=== PATIENT | male | born 1960 | race Caucasian/White ===

== ENCOUNTER 2018-08-17 18:53 | Emergency (ER) | payer SELFPAY ==
[2018-08-17] MEDS ORDERED: Aspirin 81 MG Tab.Chew PO ONE (19:19)
[2018-08-17] MEDS ORDERED: Meclizine 25 MG Tab PO ONE (19:19)
[2018-08-17] MEDS ORDERED: Sodium Chloride 0.9% 1,000 ML IV ONE (19:19)
[2018-08-17] MEDS ORDERED: Sodium Chloride 0.9% 10 ML Syringe FLUSH PRN (19:19)
[2018-08-17] MEDS ORDERED: Sodium Chloride 0.9% 2.5 ML Syringe FLUSH PRN (19:19)
[2018-08-17] MEDS ORDERED: Ondansetron 4 MG/2 ML SDV IVPUSH ONE (19:19)
--- NOTE | 2018-08-17 19:24 | EDM.PDOC ---
ED HPI GENERAL MEDICAL PROBLEM - General Chief Complaint: Chest Pain Stated Complaint: SEVERE CHEST PAIN Time Seen by Provider: 08/17/18 19:06 - History of Present Illness INITIAL COMMENTS - FREE TEXT/NARRATIVE: HISTORY AND PHYSICAL: History of present illness: The patient is a 57-year-old male with no stated cardiac or pulmonary problems and takes no medications, but does say he has an history of IBS but takes no medications, who presents with a three-day history of brief episodes of dizziness without syncope and chest with sternal pressure discomfort. The patient says that his symptoms started 3 days ago while he was in bed sleeping and he woke up and felt like the room was spinning. It only lasted for 5 minutes then went away and he went back to sleep. He felt fine throughout the next day and did have another episode where he felt dizzy spinning and lightheaded with generalized weakness and had lower midsternal chest pressure which felt tight and the dizziness lasted for less than a minute and the chest discomfort lasted for 5-10 minutes and then went away. He says that since that time he has felt really weak and a generalized way without any focal weakness a bit unsteady walking due to the weakness and has had some intermittent dizziness but no headache or neck pain no shortness of breath no vomiting but he has had some nausea. He said that he felt more nauseated this evening and felt very bloated in his upper abdomen which is why he came in. He has not had a fever chills or upper respiratory symptoms shortness of breath or any extremity complaints. He has no history of ear pain or throat pain or sinus issues. Patient not taking [id number]-[id number] meds for this. He says that over the last one year he has lost a significant amount of weight due to dieting and changing his diet. He has no family history of cardiac disease but does not know very much about his father. The patient is a smoker and has cut back significantly only smoking 5 cigarettes a day and drink more frequently but not binge drinking and now drinks only very rarely. His symptoms are somewhat vague when I talked to him and he has difficulty pinning down what is bothering him. He has never had an EKG or cardiac workup and has no leg pain or swelling. The patient said that the initial episode of the dizziness started when he was laying flat but he says that since that time he feels like it is better when he lays down and worse when he stands up. He has not had any falls Review of systems: As per history of present illness and below otherwise all systems reviewed and negative. Past medical history: As per history of present illness and as reviewed below otherwise noncontributory. Surgical history: As per history of present illness and as reviewed below otherwise noncontributory. Social history: No reported history of drug or alcohol abuse. Family history: As per history of present illness and as reviewed below otherwise noncontributory. Physical exam: General: Well-developed well-nourished man who is nontoxic and vital signs were noted by me. Patient ambulated into the ED without assistance HEENT: Atraumatic, normocephalic, pupils reactive, negative for conjunctival pallor or scleral icterus, mucous membranes moist, throat clear, neck supple, nontender, trachea midline. EOMs are intact and I cannot elicit any nystatin as , TMs are normal bilaterally and there is no mastoid tenderness redness or erythema no cervical adenopathy or nuchal rigidity and no sinus tenderness. When I have the patient move his head [id number] quickly he says that there is a slight sensation of his "brain moving" but it is not the same as what he had at home. Lungs: Clear to auscultation, breath sounds equal bilaterally, chest nontender. Heart: S1S2, regular, negative for clicks, rubs, or JVD. No overt murmurs are appreciated Abdomen: Soft, nondistended, nontender. Negative for masses or hepatosplenomegaly. Negative for costovertebral tenderness. Pelvis: Stable nontender. Genitourinary: Deferred. Rectal: Deferred. Extremities: Atraumatic, negative for cords or calf pain. Neurovascular unremarkable. Full range of motion without defects or deficits Neuro: Awake, alert, oriented. Cranial nerves II through XII unremarkable. Cerebellum unremarkable. Motor and sensory unremarkable throughout. Exam nonfocal. Diagnostics: EKG chest x-ray CBC CMP lipase H. pylori TSH troponin chest x-ray Therapeutics: IV O2 monitor IV fluids aspirin meclizine Zofran Protonix Patient says he feels completely resolved and in light of his EKG which shows a right bundle branch block and no prior history of EKG CT was offered admission which he declines. He is aware that he needs to follow-up and we will place his name on the x-ray to follow-up list and I will give him a prescription for the H. pylori. I've also given Antivert to try at home. He is aware of reasons to return to the ED and my concerns. Impression: Episodic chest pain, H pylori infection; episodic dizziness rule out vertigo Definitive disposition and diagnosis as appropriate pending reevaluation and review of above. chest Pain Score (Numeric/FACES): 1 - Related Data Allergies Allergy/AdvReac Type Severity Reaction Status Date / Time No Known Allergies Allergy Verified 02/26/15 17:17 Home Meds: Home Meds Cholestyramine/Aspartame [Cholestyramine Light] 1 packet PO ASDIRECTED 02/26/15 [History] Hydrocortisone [Proctosol-HC] 1 applic RECTAL ASDIRECTED 02/26/15 [History] Past Medical History HEENT History: Reports: Other (See Below) Other HEENT History: [place], has 'ringing to ears' Cardiovascular History: Reports: None Gastrointestinal History: Reports: Chronic Diarrhea, Hemorrhoids Other Gastrointestinal History: hx of reflux and/or heartburn, none since weight loss Musculoskeletal History: Reports: Fracture Other Musculoskeletal History: Open knee surgery Left Knee '72 Neurological History: Reports: None Endocrine/Metabolic History: Reports: Obesity/BMI 30+ Hematologic History: Reports: None Immunologic History: Reports: None Oncologic (Cancer) History: Reports: None Dermatologic History: Reports: Other (See Below) Other Dermatologic History: Nail fungus - Past Surgical History HEENT Surgical History: Reports: Tonsillectomy ED ROS GENERAL - Review of Systems Review Of Systems: ROS reveals no pertinent complaints other than HPI. ED EXAM, GENERAL - Physical Exam Exam: See Below (see Dictation) Course - Vital Signs Last Recorded V/S: Last Vital Signs Temp 37.3 C 08/17/18 19:01 Pulse 73 08/17/18 20:58 Resp 22 H 08/17/18 19:01 BP 116/71 08/17/18 20:58 Pulse Ox 97 08/17/18 20:25 - Orders/Labs/Meds Orders: Active Orders 24 hr Category Date Time Status Cardiac Monitoring [RC] . DIRECTED Care 08/17/18 19:17 Active EKG 12 Lead [EKG Documentation Completion] [RC] STAT Care 08/17/18 19:17 Active EKG Documentation Completion [RC] STAT Care 08/17/18 19:17 Active Oxygen Therapy, ED [RC] ASDIRECTED Care 08/17/18 19:17 Active Pulse Oximetry [RC] ASDIRECTED Care 08/17/18 19:17 Active Sodium Chloride 0.9% [Saline Flush] Med 08/17/18 19:19 Active 10 ml FLUSH ASDIRECTED PRN Sodium Chloride 0.9% [Saline Flush] Med 08/17/18 19:19 Active 2.5 ml FLUSH ASDIRECTED PRN Saline Lock Insert [OM.PC] Stat Oth 08/17/18 19:17 Ordered Medication Orders Sodium Chloride (Saline Flush) 10 ml FLUSH ASDIRECTED PRN PRN Reason: Keep Vein Open Last Admin: 08/17/18 19:34 Dose: 10 ml Sodium Chloride (Saline Flush) 2.5 ml FLUSH ASDIRECTED PRN PRN Reason: Keep Vein Open Last Admin: 08/17/18 19:34 Dose: 2.5 ml Labs: Laboratory Tests 08/17/18 08/17/18 08/17/18 Range/Units 19:30 19:30 19:30 WBC 8.93 (4.0-11.0) K/uL RBC 5.19 (4.50-5.90) M/uL Hgb 16.3 (13.0-17.0) g/dL Hct 47.6 (38.0-50.0) % MCV 91.7 (80.0-98.0) fL MCH 31.4 (27.0-32.0) pg MCHC 34.2 (31.0-37.0) g/dL RDW Std Deviation 42.0 (28.0-62.0) fl RDW Coeff of Mejia 13 (11.0-15.0) % Plt Count 173 (150-400) K/uL MPV 11.10 (7.40-12.00) fL Neut % (Auto) 54.6 (48.0-80.0) % Lymph % (Auto) 36.2 (16.0-40.0) % Lyman % (Auto) 4.9 (0.0-15.0) % Eos % (Auto) 3.7 (0.0-7.0) % Baso % (Auto) 0.6 (0.0-1.5) % Neut # (Auto) 4.9 (1.4-5.7) K/uL Lymph # (Auto) 3.2 H (0.6-2.4) K/uL Lyman # (Auto) 0.4 (0.0-0.8) K/uL Eos # (Auto) 0.3 (0.0-0.7) K/uL Baso # (Auto) 0.1 (0.0-0.1) K/uL Nucleated RBC % 0.0 /100WBC Nucleated RBCs # 0 K/uL Sodium 139 (136-148) mmol/L Potassium 3.5 (3.5-5.1) mmol/L Chloride 104 (98-107) mmol/L Carbon Dioxide 26.8 (21.0-32.0) mmol/L BUN 9 (7.0-18.0) mg/dL Creatinine 1.1 (0.8-1.3) mg/dL Est Cr Clr Drug Dosing 75.88 mL/min Estimated GFR (MDRD) > 60.0 ml/min Glucose 159 H (74-106) mg/dL Calcium 8.5 (8.5-10.1) mg/dL Total Bilirubin 0.3 (0.2-1.0) mg/dL AST 12 L (15-37) IU/L ALT 16 (14-63) IU/L Alkaline Phosphatase 74 (46-116) U/L Troponin I < 0.050 (0.000-0.056) ng/mL Total Protein 6.9 (6.4-8.2) g/dL Albumin 3.5 (3.4-5.0) g/dL Globulin 3.4 (2.6-4.0) g/dL Albumin/Globulin Ratio 1.0 (0.9-1.6) Lipase 365 (73-393) U/L TSH 3rd Generation 1.18 (0.36-3.74) uIU/mL Urine Color Urine Appearance Urine pH (5.0-8.0) Ur Specific [place] (1.001-1.035) Urine Protein (NEGATIVE) mg/dL Urine Glucose (UA) (NEGATIVE) mg/dL Urine Ketones (NEGATIVE) mg/dL Urine Occult Blood (NEGATIVE) Urine Nitrite (NEGATIVE) Urine Bilirubin (NEGATIVE) Urine Urobilinogen (<2.0) EU/dL Ur Leukocyte Esterase (NEGATIVE) H. pylori IgG Antibody POSITIVE H (NEG) 08/17/18 Range/Units 19:42 WBC (4.0-11.0) K/uL RBC (4.50-5.90) M/uL Hgb (13.0-17.0) g/dL Hct (38.0-50.0) % MCV (80.0-98.0) fL MCH (27.0-32.0) pg MCHC (31.0-37.0) g/dL RDW Std Deviation (28.0-62.0) fl RDW Coeff of Mejia (11.0-15.0) % Plt Count (150-400) K/uL MPV (7.40-12.00) fL Neut % (Auto) (48.0-80.0) % Lymph % (Auto) (16.0-40.0) % Lyman % (Auto) (0.0-15.0) % Eos % (Auto) (0.0-7.0) % Baso % (Auto) (0.0-1.5) % Neut # (Auto) (1.4-5.7) K/uL Lymph # (Auto) (0.6-2.4) K/uL Lyman # (Auto) (0.0-0.8) K/uL Eos # (Auto) (0.0-0.7) K/uL Baso # (Auto) (0.0-0.1) K/uL Nucleated RBC % /100WBC Nucleated RBCs # K/uL Sodium (136-148) mmol/L Potassium (3.5-5.1) mmol/L Chloride (98-107) mmol/L Carbon Dioxide (21.0-32.0) mmol/L BUN (7.0-18.0) mg/dL Creatinine (0.8-1.3) mg/dL Est Cr Clr Drug Dosing mL/min Estimated GFR (MDRD) ml/min Glucose (74-106) mg/dL Calcium (8.5-10.1) mg/dL Total Bilirubin (0.2-1.0) mg/dL AST (15-37) IU/L ALT (14-63) IU/L Alkaline Phosphatase (46-116) U/L Troponin I (0.000-0.056) ng/mL Total Protein (6.4-8.2) g/dL Albumin (3.4-5.0) g/dL Globulin (2.6-4.0) g/dL Albumin/Globulin Ratio (0.9-1.6) Lipase (73-393) U/L TSH 3rd Generation (0.36-3.74) uIU/mL Urine Color YELLOW Urine Appearance CLEAR Urine pH 5.5 (5.0-8.0) Ur Specific [place] <= 1.005 (1.001-1.035) Urine Protein NEGATIVE (NEGATIVE) mg/dL Urine Glucose (UA) NEGATIVE (NEGATIVE) mg/dL Urine Ketones NEGATIVE (NEGATIVE) mg/dL Urine Occult Blood NEGATIVE (NEGATIVE) Urine Nitrite NEGATIVE (NEGATIVE) Urine Bilirubin NEGATIVE (NEGATIVE) Urine Urobilinogen 0.2 (<2.0) EU/dL Ur Leukocyte Esterase NEGATIVE (NEGATIVE) H. pylori IgG Antibody (NEG) Meds: Medications Generic Name Dose Route Start Last Admin Trade Name Freq PRN Reason Stop Dose Admin Sodium Chloride 10 ml 08/17/18 19:19 08/17/18 19:34 Saline Flush FLUSH 10 ml ASDIRECTED PRN Administration Keep Vein Open Sodium Chloride 2.5 ml 08/17/18 19:19 08/17/18 19:34 Saline Flush FLUSH 2.5 ml ASDIRECTED PRN Administration Keep Vein Open Discontinued Medications Generic Name Dose Route Start Last Admin Trade Name Freq PRN Reason Stop Dose Admin Aspirin 324 mg 08/17/18 19:19 08/17/18 19:34 Aspirin PO 08/17/18 19:20 324 mg ONETIME ONE Administration Sodium Chloride 1,000 mls @ 999 mls/hr 08/17/18 19:19 08/17/18 19:33 Normal Saline IV 08/17/18 20:19 999 mls/hr STAT ONE Administration Meclizine HCl 25 mg 08/17/18 19:19 08/17/18 19:34 Antivert PO 08/17/18 19:20 25 mg ONETIME ONE Administration Ondansetron HCl 4 mg 08/17/18 19:19 08/17/18 19:33 Zofran IVPUSH 08/17/18 19:20 4 mg ONETIME ONE Administration Pantoprazole Sodium 80 mg 08/17/18 20:19 08/17/18 20:50 Protonix Iv IVPUSH 08/17/18 20:20 80 mg .BOLUS ONE Administration Sodium Chloride 20 ml 08/17/18 20:40 08/17/18 20:50 Normal Saline FLUSH 08/17/18 20:41 20 ml ONETIME ONE Administration Departure - Departure Time of Disposition: 21:19 Disposition: Home, Self-Care 01 Condition: Good Clinical Impression: Dizziness, Helicobacter pylori infection, Atypical chest pain - Discharge Information Referrals: PCP,None [Primary Care Provider] - Forms: ED Department Discharge Additional Instructions: The following information is given to patients seen in the emergency department who are being discharged to home. This information is to outline your options for follow-up care. We provide all patients seen in our emergency department with a follow-up referral. The need for follow-up, as well as the timing and circumstances, are variable depending upon the specifics of your emergency department visit. If you don't have a primary care physician on staff, we will provide you with a referral. We always advise you to contact your personal physician following an emergency department visit to inform them of the circumstance of the visit and for follow-up with them and/or the need for any referrals to a consulting specialist. The emergency department will also refer you to a specialist when appropriate. This referral assures that you have the opportunity for followup care with a specialist. All of these measure are taken in an effort to provide you with optimal care, which includes your followup. Under all circumstances we always encourage you to contact your private physician who remains a resource for coordinating your care. When calling for followup care, please make the office aware that this follow-up is from your recent emergency room visit. If for any reason you are refused follow-up, please contact the [facility] emergency department at and ask to speak to the emergency department charge nurse. [facility] Primary care- Internal Medicine and Family [address] [address] Please fill your prescription and take all medications as prescribed. Use the meclizine for dizziness. Please return to ER as needed and as we discussed for evolution of your symptoms or as you have any concerns. Please connect with our clinic on [address] morning and schedule a follow-up appointment for more care and evaluation. - My Orders Last 24 Hours: My Active Orders 08/17/18 19:17 Cardiac Monitoring [RC] . DIRECTED EKG 12 Lead [EKG Documentation Completion] [RC] STAT EKG Documentation Completion [RC] STAT Oxygen Therapy, ED [RC] ASDIRECTED Pulse Oximetry [RC] ASDIRECTED Saline Lock Insert [OM.PC] Stat 08/17/18 19:19 Sodium Chloride 0.9% [Saline Flush] 10 ml FLUSH ASDIRECTED PRN Sodium Chloride 0.9% [Saline Flush] 2.5 ml FLUSH ASDIRECTED PRN - Assessment/Plan Last 24 Hours: My Active Orders 08/17/18 19:17 Cardiac Monitoring [RC] . DIRECTED EKG 12 Lead [EKG Documentation Completion] [RC] STAT EKG Documentation Completion [RC] STAT Oxygen Therapy, ED [RC] ASDIRECTED Pulse Oximetry [RC] ASDIRECTED Saline Lock Insert [OM.PC] Stat 08/17/18 19:19 Sodium Chloride 0.9% [Saline Flush] 10 ml FLUSH ASDIRECTED PRN Sodium Chloride 0.9% [Saline Flush] 2.5 ml FLUSH ASDIRECTED PRN
[2018-08-17 20:07] LABS: CHLORIDE,CL 104 mmol/L (98-107); SODIUM,NA 139 mmol/L (136-148)
--- NOTE | 2018-08-17 20:15 | CR ---
INDICATION: Pain and shortness of breath. TECHNIQUE: Chest 1 view. COMPARISON: None FINDINGS: Cardiovascular and mediastinum: Heart size and vasculature are normal in caliber and appearance. Mediastinum is within normal limits. Lungs and pleural space: Lungs are clear. No pleural effusion. No pneumothorax. Bones and soft tissues: No acute findings. IMPRESSION: No acute pulmonary process. Dictated by Phillip Rao MD @ 08/17/2018 8:13:12 PM Dictated by: Phillip Rao MD @ 08/17/2018 20:13:18 (Electronically Signed)
[2018-08-17] MEDS ORDERED: Pantoprazole 40 MG Vial IVPUSH ONE (20:19)
[2018-08-17] MEDS ORDERED: Sodium Chloride 0.9% 20 ML SDV FLUSH ONE (20:40)
--- NOTE | 2018-08-17 20:45 | CT ---
INDICATION: Dizziness. Weakness. TECHNIQUE: CT head without IV contrast. FINDINGS: No intracranial hemorrhage, edema, or mass-effect. Mild prominence of CSF space posterior to the cerebellum likely related to mild prominence of the cisterna magnum. Mild cerebral atrophy. The left lateral ventricle is slightly more prominent than the right likely a normal variant finding. Remainder negative. IMPRESSION: No acute intracranial disease. Chronic intracranial findings as detailed above. Please note that all CT scans at this facility use dose modulation, iterative reconstruction, and/or weight-based dosing when appropriate to reduce radiation dose to as low as reasonably achievable. Dictated by Linden August MD @ Aug 17 2018 8:41PM Signed by Dr. Linden August @ Aug 17 2018 8:45PM
[2018-08-18 02:09] VITALS: BP 117/71
== END 2018-08-17 21:38 | disposition home or self-care (01) ==
LOC: MW.ED 18:53
DX: A04.8 Other specified bacterial intestinal infections (principal); R07.89 Other chest pain; R42 Dizziness and giddiness; E66.9 Obesity, unspecified; F17.210 Nicotine dependence, cigarettes, uncomplicated; Z98.890 Other specified postprocedural states
CPT/HCPCS: 70450; 71045; 80053; 81003; 83690; 84443; 84484; 85025; 86677; 93005; 96361; 96374; 96375; 99285; A9270; C9113; J2405; J7040

== ENCOUNTER 2020-07-16 16:15 | Emergency (ER) | payer SELFPAY ==
[2020-07-16 16:34] VITALS: BP 123/80; PULSE 101
--- NOTE | 2020-07-16 16:39 | EDM.PDOC ---
ED HPI GENERAL MEDICAL PROBLEM - General Chief Complaint: General Stated Complaint: PENDING NOTIFICATION? Time Seen by Provider: 07/16/20 16:25 Source of Information: Reports: Patient History Limitations: Reports: No Limitations - History of Present Illness INITIAL COMMENTS - FREE TEXT/NARRATIVE: Patient is a 59-year-old male who presents today for chest pain and tingling of extremities. Patient states that he drinks alcohol last night more than what he normally drinks and woke up today is slightly hung over. Patient states he had a new batch of marijuana and not smoking he has some tingling throughout his body was made him nervous. Patient also has some left-sided chest pain which seems more of a did not radiate was not made better or worse. Patient has no chest pain. Patient denies any nausea vomiting fever chills or other medical complaints. back of the neck Pain Score (Numeric/FACES): 6 chest Pain Score (Numeric/FACES): 1 - Related Data Allergies Allergy/AdvReac Type Severity Reaction Status Date / Time No Known Allergies Allergy Verified 07/16/20 16:34 Home Meds: Home Meds . [No Known Home Meds] 07/16/20 [History] Past Medical History HEENT History: Reports: Other (See Below) Other HEENT History: Musc[place], has 'ringing to ears' Cardiovascular History: Reports: None Gastrointestinal History: Reports: Chronic Diarrhea, Hemorrhoids Other Gastrointestinal History: hx of reflux and/or heartburn, none since weight loss Musculoskeletal History: Reports: Fracture Other Musculoskeletal History: Open knee surgery Left Knee '72 Neurological History: Reports: None Endocrine/Metabolic History: Reports: Obesity/BMI 30+ Hematologic History: Reports: None Immunologic History: Reports: None Oncologic (Cancer) History: Reports: None Dermatologic History: Reports: Other (See Below) Other Dermatologic History: Nail fungus - Infectious Disease History Infectious Disease History: Reports: Chicken Pox - Past Surgical History HEENT Surgical History: Reports: Tonsillectomy Social & Family History - Caffeine Use Caffeine Use: Reports: Coffee ED ROS GENERAL - Review of Systems Review Of Systems: See Below Constitutional: Reports: No Symptoms HEENT: Reports: No Symptoms Respiratory: Reports: No Symptoms Cardiovascular: Reports: No Symptoms, Chest Pain Endocrine: Reports: No Symptoms GI/Abdominal: Reports: No Symptoms : Reports: No Symptoms Musculoskeletal: Reports: No Symptoms Skin: Reports: No Symptoms Neurological: Reports: No Symptoms Psychiatric: Reports: No Symptoms Hematologic/Lymphatic: Reports: No Symptoms Immunologic: Reports: No Symptoms ED EXAM, GENERAL - Physical Exam Exam: See Below Exam Limited By: No Limitations General Appearance: Alert, WD/WN, No Apparent Distress Eye Exam: Bilateral Eye: EOMI, PERRL Respiratory/Chest: No Respiratory Distress, Lungs Clear, Normal Breath Sounds Cardiovascular: Normal Peripheral Pulses, Regular Rate, Rhythm GI/Abdominal: Normal Bowel Sounds, Soft, Non-Tender Extremities: Normal Inspection Neurological: Alert, Oriented, CN II-XII Intact, Normal Cognition, Normal Gait #1 Interpretation EKG Date: 07/16/20 Time: 16:18 Rhythm: NSR Rate (Beats/Min): 96 ST-T: Normal Course - Vital Signs Last Recorded V/S: Last Vital Signs Temp 96 F L 07/16/20 16:25 Pulse 101 H 07/16/20 16:25 Resp 17 07/16/20 16:25 BP 123/80 07/16/20 16:25 Pulse Ox 97 07/16/20 16:25 - Orders/Labs/Meds Orders: Active Orders 24 hr Category Date Time Status EKG Documentation Completion [RC] STAT Care 07/16/20 16:34 Active Labs: Laboratory Tests 07/16/20 07/16/20 Range/Units 16:25 16:25 WBC 12.57 H (4.0-11.0) K/uL RBC 5.25 (4.50-5.90) M/uL Hgb 16.4 (13.0-17.0) g/dL Hct 47.6 (38.0-50.0) % MCV 90.7 (80.0-98.0) fL MCH 31.2 (27.0-32.0) pg MCHC 34.5 (31.0-37.0) g/dL RDW Std Deviation 43.5 (28.0-62.0) fl RDW Coeff of Mejia 13 (11.0-15.0) % Plt Count 188 (150-400) K/uL MPV 11.10 (7.40-12.00) fL Neut % (Auto) 71.8 (48.0-80.0) % Lymph % (Auto) 21.9 (16.0-40.0) % [place] % (Auto) 5.0 (0.0-15.0) % Eos % (Auto) 0.8 (0.0-7.0) % Baso % (Auto) 0.5 (0.0-1.5) % Neut # (Auto) 9.0 H (1.4-5.7) K/uL Lymph # (Auto) 2.8 H (0.6-2.4) K/uL [place] # (Auto) 0.6 (0.0-0.8) K/uL Eos # (Auto) 0.1 (0.0-0.7) K/uL Baso # (Auto) 0.1 (0.0-0.1) K/uL Nucleated RBC % 0.0 /100WBC Nucleated RBCs # 0 K/uL Sodium 135 L (136-148) mmol/L Potassium 4.3 (3.5-5.1) mmol/L Chloride 101 (98-107) mmol/L Carbon Dioxide 23.8 (21.0-32.0) mmol/L BUN 14 (7.0-18.0) mg/dL Creatinine 1.2 (0.8-1.3) mg/dL Est Cr Clr Drug Dosing 65.71 mL/min Estimated GFR (MDRD) > 60.0 ml/min Glucose 135 H (74-106) mg/dL Calcium 8.2 L (8.5-10.1) mg/dL Phosphorus 2.6 (2.6-4.7) mg/dL Magnesium 1.5 L (1.8-2.4) mg/dL Total Bilirubin 0.6 (0.2-1.0) mg/dL AST 28 (15-37) IU/L ALT 39 (14-63) IU/L Alkaline Phosphatase 99 (46-116) U/L Creatine Kinase 101 (26-308) U/L Troponin I < 0.050 (0.000-0.056) ng/mL Total Protein 7.6 (6.4-8.2) g/dL Albumin 3.7 (3.4-5.0) g/dL Globulin 3.9 (2.6-4.0) g/dL Albumin/Globulin Ratio 0.9 (0.9-1.6) Lipase 102 (73-393) U/L Ethyl Alcohol < 3.0 mg/dL Meds: Medications Discontinued Medications Generic Name Dose Route Start Last Admin Trade Name Tracey PRN Reason Stop Dose Admin Magnesium Oxide 800 mg 07/16/20 17:17 Magnesium Oxide 400 Mg Tab PO 07/16/20 17:18 ONETIME ONE - Re-Assessments/Exams Free Text/Narrative Re-Assessment/Exam: 07/16/20 17:36 Patient has a low magnesium and calcium every replete. Patient currently has no symptoms. Patient EKG tropes reviewed. Patient will be discharged home. Patient EKG has no reciprocal changes. Departure - Departure Time of Disposition: 17:36 Disposition: Home, Self-Care 01 Condition: Good Clinical Impression: Chest pain - Discharge Information *PRESCRIPTION DRUG MONITORING PROGRAM REVIEWED*: Not Applicable *COPY OF PRESCRIPTION DRUG MONITORING REPORT IN PATIENT JO-ANN: Not Applicable Instructions: Nonspecific Chest Pain, Adult, [id number]-[id number] Forms: ED Department Discharge Additional Instructions: The following information is given to patients seen in the emergency department who are being discharged to home. This information is to outline your options for follow-up care. We provide all patients seen in our emergency department with a follow-up referral. The need for follow-up, as well as the timing and circumstances, are variable depending upon the specifics of your emergency department visit. If you don't have a primary care physician on staff, we will provide you with a referral. We always advise you to contact your personal physician following an emergency department visit to inform them of the circumstance of the visit and for follow-up with them and/or the need for any referrals to a consulting specialist. The emergency department will also refer you to a specialist when appropriate. This referral assures that you have the opportunity for follow-up care with a specialist. All of these measure are taken in an effort to provide you with optimal care, which includes your follow-up. Under all circumstances we always encourage you to contact your private physician who remains a resource for coordinating your care. When calling for follow-up care, please make the office aware that this follow-up is from your recent emergency room visit. If for any reason you are refused follow-up, please contact the [facility] Emergency Department at and asked to speak to the emergency department charge nurse. Please follow up with your primary care physician. If you do not have a primary care physician, see below: [facility] [address] [place] [address] [facility] [address] [place] [address] You were seen today for chest pain and tingling to all your extremities. This could be due to your low magnesium. We did EKG and labs to make sure your heart was okay came back within normal. We still recommend follow-up with your primary care physician. Sepsis Event Note (ED) - Evaluation Sepsis Screening Result: No Definite Risk - Focused Exam Vital Signs: Vital Signs Temp Pulse Resp BP Pulse Ox 07/16/20 16:25 96 F L 101 H 17 123/80 97 - My Orders Last 24 Hours: My Active Orders 07/16/20 16:34 EKG Documentation Completion [RC] STAT - Assessment/Plan Last 24 Hours: My Active Orders 07/16/20 16:34 EKG Documentation Completion [RC] STAT Plan: Patient is a 59-year-old male presents today for chest pain and arm tingling after smoking marijuana and drinking. Patient has a heart score of 1 just b ecause of age. We will obtain labs EKG and reassess.
[2020-07-16 17:01] LABS: BLOOD UREA NITROGEN,BUN 14 mg/dL (7.0-18.0); CARBON DIOXIDE,CO2 23.8 mmol/L (21.0-32.0); CHLORIDE,CL 101 mmol/L (98-107); GLUCOSE RANDOM 135 mg/dL (74-106); LIPASE 102 U/L (73-393); POTASSIUM,K 4.3 mmol/L (3.5-5.1); SODIUM,NA 135 mmol/L (136-148)
--- NOTE | 2020-07-16 17:11 | CR ---
INDICATION: chest pain TECHNIQUE: Chest 2 views. COMPARISON: 08/17/18 FINDINGS: Cardiovascular and mediastinum: Heart size and vasculature are normal in caliber and appearance. Mediastinum is within normal limits. Lungs and pleural spaces: Lungs are clear. No sign of infiltrate or mass. No sign of pleural effusion. No pneumothorax. Bones and soft tissues: No significant findings. IMPRESSION: Unremarkable chest. Dictated by: Rocky Rizzo MD @ 07/16/2020 17:09:53 (Electronically Signed)
[2020-07-16] MEDS ORDERED: Magnesium Oxide 400 MG Tab PO ONE ×2 (17:17→18:00)
== END 2020-07-16 17:55 | disposition home or self-care (01) ==
LOC: MW.ED 16:15
DX: R07.9 Chest pain, unspecified (principal)
CPT/HCPCS: 36415; 71046; 80053; 80307; 82550; 83690; 83735; 84100; 84484; 85025; 93005; 99285; A9270; 93010; 99283